=== PATIENT | male | born 1955 ===

== ENCOUNTER 2020-12-23 11:36 | Outpatient (CLI) | payer OTHER | END 2020-12-23 15:00 | disposition home or self-care (01) | LOC: SONOGRAMA 11:36 | PROVIDERS: ATTEND General Practice | DX: M25.511 Pain in right shoulder (principal); M25.611 Stiffness of right shoulder, not elsewhere classified; Z91.81 History of falling ==

== ENCOUNTER 2021-02-23 14:55 | Outpatient (CLI) | payer OTHER | END 2021-02-23 14:56 | disposition home or self-care (01) | LOC: NUCLEAR 14:55 | PROVIDERS: ATTEND Orthopaedic Surgery | DX: M81.0 Age-related osteoporosis without current pathological fracture (principal) ==